=== PATIENT | female | born 1955 | race Caucasian/White ===

== ENCOUNTER 2022-08-27 08:38 | Day surgery (SDC) | payer OTHER ==
[~2022-08-27] VITALS: Ht 167.6 cm; Wt 65.6 kg
[~2022-08-27 08:38] MED LIST: ASPI-1264 PO; BUPR-113 PO; EST1T PO; HYDR-4353 PO; MORP-92 PO
[2022-08-27 08:54] VITALS: BP 133/73
[2022-08-27] MEDS ORDERED: BUPR-352 PO (09:10)
[2022-08-27] MEDS ORDERED: ROSU20TA31 PO (09:10)
[2022-08-27] MEDS ORDERED: LISI30TA4 PO (09:10)
[2022-08-27] MEDS ORDERED: GABA300C (09:10)
[2022-08-27] MEDS ORDERED: OXCA300T16 PO (09:10)
[2022-08-27] MEDS ORDERED: CHOL200074 PO (09:15)
[2022-08-27] MEDS ORDERED: ASPI-1071 PO (09:15)
[2022-08-27 10:15] VITALS: BP 143/63
[2022-08-27 10:29] VITALS: BP 138/78
[2022-08-27 10:44] VITALS: BP 154/83
[2022-08-27 10:59] VITALS: BP 141/75
[2022-08-27 11:14] VITALS: BP 144/86
[2022-08-27 11:35] LABS: GLUCOSE,CSF 57 MG/DL (40-75); TOTAL PROTEIN,CSF 48 MG/DL (30-60)
[2022-08-27 11:46] LABS: APPEARANCE,CSF CLEAR
[2022-08-27 11:47] LABS: CSF RBC 26 /CU MM (0); CSF SUPERNATANT COLOR COLORLESS; CSF VOLUME 12.8 ML; CSF WBC CT 2 /CU MM (0-5); TUBE# COUNTED 1
== END 2022-08-27 11:55 | disposition home or self-care (01) ==
LOC: SSTAY O 08:38
PROVIDERS: ATTEND Psychiatry & Neurology Neurology
DX: R90.82 White matter disease, unspecified (principal); M62.81 Muscle weakness (generalized); G62.9 Polyneuropathy, unspecified; G24.3 Spasmodic torticollis; G44.041 Chronic paroxysmal hemicrania, intractable; F41.9 Anxiety disorder, unspecified; F32.A Depression, unspecified; M19.90 Unspecified osteoarthritis, unspecified site; M48.061 Spinal stenosis, lumbar region without neurogenic claudication; Z79.899 Other long term (current) drug therapy; Z79.82 Long term (current) use of aspirin; Z88.8 Allergy status to other drugs, medicaments and biological substances; Z90.710 Acquired absence of both cervix and uterus; Z98.890 Other specified postprocedural states; Z82.49 Family history of ischemic heart disease and other diseases of the circulatory system; Z83.3 Family history of diabetes mellitus
CPT/HCPCS: 36415; 62328; 77003; 82040; 82042; 82164; 82784; 82945; 83873; 83916; 84157; 86592; 86617; 87496; 89051; A4620

== ENCOUNTER 2023-05-28 14:57 | Outpatient (CLI) | payer MEDICARE ==
[~2023-05-28 14:57] MED LIST changes: +ASPI-1071 PO; -ASPI-1264 PO; -BUPR-113 PO; +BUPR-352 PO; +CHOL200074 PO; +GABA300C; -HYDR-4353 PO; +LISI30TA4 PO; -MORP-92 PO; +OXCA300T16 PO; +ROSU20TA73 PO
== END 2023-05-28 23:59 | disposition home or self-care (01) ==
LOC: RAD 14:57
PROVIDERS: ATTEND Psychiatry & Neurology Neurology
DX: R13.12 Dysphagia, oropharyngeal phase (principal); R49.0 Dysphonia; G72.41 Inclusion body myositis [IBM]
CPT/HCPCS: 74230